=== PATIENT | male | born 1960 ===

== ENCOUNTER 2018-01-03 07:06 | Emergency (ER) | payer MEDICAID, OTHER ==
[~2018-01-03] VITALS: Ht 165.1 cm; Wt 87.9 kg
[~2018-01-03 07:06] MED LIST: FENO145T32 PO; GABA300C10 PO; LACT10SO5 PO; OXYC5TAB3 PO; PANT40TA5 PO
[2018-01-03 07:08] VITALS: BP 145/88
[2018-01-03] MEDS ORDERED: DIPH,PERTUSS(ACELL),TET VAC/PF 0.5 ML IM-VACC ONE ×2 (08:00→08:01)
[2018-01-03] MEDS ORDERED: BACITRACIN ZINC OINT 500U/GM, 0.9 GM ONE (08:47)
== END 2018-01-03 09:32 | disposition home or self-care (01) ==
LOC: ED 09:12
DX: S61.412A Laceration without foreign body of left hand, initial encounter (principal); E78.5 Hyperlipidemia, unspecified; W20.8XXA Other cause of strike by thrown, projected or falling object, initial encounter; Y93.89 Activity, other specified; Y92.89 Other specified places as the place of occurrence of the external cause; Y99.0 Civilian activity done for income or pay
CPT/HCPCS: 12001; 90471; 90715; 99283